=== PATIENT | male | born 1985 | race African-American/Black ===

== ENCOUNTER 2024-10-01 20:55 | Inpatient (IN) | payer SELFPAY ==
[2024-10-01 21:02] VITALS: BMI 26.6
[2024-10-01 22:42] LABS: VENOUS BASE EXCESS 5.7 mmol/L (-2-2); VENOUS O2 SATURATION 80.7 % (70-80); VENOUS PCO2 47.3 mmHg (38-52); VENOUS PH 7.43 (7.310-7.410)
[2024-10-01] MEDS ORDERED: HYDROmorphone HCL CARPU-JECT 2 MG/1 ML DISP.SYRIN ONE ×2 (22:42→23:46)
[2024-10-01 22:44] LABS: EOS % 2.2 % (0-4.5); HEMATOCRIT 25.2 % (35.4-49); HEMOGLOBIN 8.3 GM/dL (11.7-16.9); LYMPH % 7.6 % (8-40); MCH 29.1 pg (25.7-33.7); MEAN CELL VOLUME 88.2 fl (80-96); MEAN PLT VOLUME 7.3 fl (7.5-11.1); MONO % 10.8 % (3.8-10.2); NEUT % 78.4 % (42.8-82.8); PLATELET COUNT 102 10^3/uL (134-434); RBC 2.86 M/mm3 (4.00-5.60); RDW 18.5 % (11.9-15.9); WHITE BLOOD COUNT 3.6 K/mm3 (4.0-10.0)
[2024-10-01 22:57] LABS: INR 1.05 (0.83-1.09); PROTHROMBIN TIME (PATIENT) 11.8 SEC (9.7-13.0)
[2024-10-01 22:59] LABS: ACTIVATED PTT 37.2 SECONDS (25.2-36.5)
[2024-10-01 23:11] LABS: POTASSIUM 3.9 mmol/L (3.5-5.1)
[2024-10-01 23:12] LABS: BLOOD UREA NITROGEN 27.4 mg/dL (7-18); CALCIUM 9.7 mg/dL (8.5-10.1); MAGNESIUM 2.2 mg/dL (1.8-2.4)
[2024-10-01 23:16] LABS: CREATININE 6.3 mg/dL (0.55-1.3); PHOSPHOROUS 3.6 mg/dL (2.5-4.9)
[2024-10-01] MEDS: HYDROmorphone HCl 2 MG/ML VIAL IVPUSH ONE ×2 (23:17→23:53)
[2024-10-01 23:18] LABS: BILIRUBIN,TOTAL 0.7 mg/dL (0.2-1); TOT PROT 6.6 g/dl (6.4-8.2)
[2024-10-02] MEDS ORDERED: HYDROmorphone HCL CARPU-JECT 2 MG/1 ML DISP.SYRIN ONE ×2 (00:26→01:35)
[2024-10-02] MEDS: HYDROmorphone HCl 2 MG/ML VIAL IVPUSH ONE ×2 (00:51→01:53)
[2024-10-02] MEDS: HYDROmorphone HCL CARPU-JECT 2 MG/1 ML DISP.SYRIN IVPB PRN (05:38)
[2024-10-02] MEDS ORDERED: METOCLOPRAMIDE HCL 10 MG TABLET (FP) PO PRN (06:32)
[2024-10-02] MEDS: INSULIN ASPART SLIDING SCALE (NOVOLOG) 1 VIAL SQ SCH (08:11)
[2024-10-02] MEDS: LABETALOL HCL 100 MG TABLET (FP) PO SCH (08:16)
[2024-10-02] MEDS: ACETAMINOPHEN 1000 MG/100 ML BAG IVPB PRN (08:16)
[2024-10-02] MEDS: cloNIDine HCL 0.1 MG TABLET PO SCH (08:16)
[2024-10-02] MEDS: hydrALAZINE HCL 50 MG TABLET (FP) PO SCH (08:16)
[2024-10-02] MEDS ORDERED: HYDROmorphone HCL CARPU-JECT 2 MG/1 ML DISP.SYRIN IVPB PRN (09:28)
[2024-10-02] MEDS: NIFEdipine E.R 60 MG TABLET PO SCH (09:49)
[2024-10-02] MEDS: CEFTRIAXONE 1 GM/50 ML PREMIX IVPB SCH (09:49)
[2024-10-02] MEDS: HYDROXYUREA 500 MG CAPSULE PO SCH (09:49)
[2024-10-02] MEDS: FOLIC ACID 1 MG TABLET (FP) PO SCH (09:49)
[2024-10-02] MEDS ORDERED: FOLIC ACID 1 MG TABLET (FP) PO SCH (10:00)
[2024-10-02] MEDS ORDERED: HYDROXYUREA 500 MG CAPSULE PO SCH (10:00)
[2024-10-02] MEDS: AZITHROMYCIN IVPB 500 MG/250 ML BAG IVPB ONE (10:38)
[2024-10-02] MEDS: HYDROmorphone HCL CARPU-JECT 2 MG/1 ML DISP.SYRIN IVPUSH PRN (10:46)
[2024-10-02] MEDS ORDERED: SODIUM CHLORIDE 250 ML IV PRN (13:15)
[2024-10-02 16:17] LABS: POTASSIUM 4.3 mmol/L (3.5-5.1)
[2024-10-02 16:21] LABS: CALCIUM 9.8 mg/dL (8.5-10.1)
[2024-10-02 16:22] LABS: ALBUMIN 2.8 g/dl (3.4-5.0); MAGNESIUM 2.1 mg/dL (1.8-2.4)
[2024-10-02 16:24] LABS: CREATININE 7.3 mg/dL (0.55-1.3)
[2024-10-02 16:25] LABS: PHOSPHOROUS 4.8 mg/dL (2.5-4.9)
[2024-10-02 16:27] LABS: BILIRUBIN,TOTAL 0.6 mg/dL (0.2-1); TOT PROT 6.2 g/dl (6.4-8.2)
[2024-10-02] MEDS: EPOETIN ALFA-EPBX 10,000 UNIT/ML VIAL SQ ONE (18:47)
[2024-10-03] MEDS: AZITHROMYCIN IVPB 250 MG in DEXTROSE 5%-WATER - 250 ML IVPB SCH (12:35)
[2024-10-03] MEDS: HYDROmorphone HCL CARPU-JECT 2 MG/1 ML DISP.SYRIN IVPUSH PRN (15:26)
[2024-10-03] MEDS ORDERED: SODIUM CHLORIDE 250 ML IV PRN (19:12)
[2024-10-03] MEDS: hydrALAZINE HCL 50 MG TABLET (FP) PO SCH (21:24)
[2024-10-03] MEDS: LABETALOL HCL 100 MG TABLET (FP) PO SCH (21:24)
[2024-10-03] MEDS: cloNIDine HCL 0.1 MG TABLET PO SCH (21:24)
[2024-10-04 09:56] LABS: BASO % 0.7 % (0-2.0); HEMATOCRIT 22.7 % (35.4-49); HEMOGLOBIN 7.6 GM/dL (11.7-16.9); MCH 29.9 pg (25.7-33.7); MCHC 33.3 g/dl (32.0-35.9); MEAN CELL VOLUME 89.7 fl (80-96); MEAN PLT VOLUME 7.2 fl (7.5-11.1); NEUT % 71.3 % (42.8-82.8); PLATELET COUNT 115 10^3/uL (134-434); RBC 2.53 M/mm3 (4.00-5.60); RDW 18.8 % (11.9-15.9); WHITE BLOOD COUNT 3.3 K/mm3 (4.0-10.0)
[2024-10-04] MEDS: EPOETIN ALFA-EPBX 10,000 UNIT/ML VIAL IVPUSH ONE (10:15)
[2024-10-04 10:18] LABS: CHLORIDE 101 mmol/L (98-107); SODIUM 136 mmol/L (136-145)
[2024-10-04 10:23] LABS: ALBUMIN 2.6 g/dl (3.4-5.0); ANION GAP 7 mmol/L (4-13); BLOOD UREA NITROGEN 44.4 mg/dL (7-18); CALCIUM 9.6 mg/dL (8.5-10.1); CO2 28 mmol/L (21-32); GLUCOSE,RANDOM 188 mg/dL (74-106)
[2024-10-04 10:27] LABS: SGOT/AST 19 U/L (15-37); SGPT/ALT 21 U/L (13-61)
[2024-10-04 10:28] LABS: BILIRUBIN,TOTAL 0.5 mg/dL (0.2-1); TOT PROT 5.8 g/dl (6.4-8.2)
[2024-10-04 10:29] LABS: ALK PHOS 195 U/L (45-117)
[2024-10-04 10:38] LABS: CREATININE 7.7 mg/dL (0.55-1.3)
[2024-10-04] MEDS: NIFEdipine E.R 60 MG TABLET PO SCH (12:53)
[2024-10-04 13:41] VITALS: BP 172/61; PULSE 82; RESP 17; TEMP 98.6
[2024-10-04] MEDS ORDERED: AMOX TR/POT CLAV 500MG/125MG TABLETS (FP) PO SCH (17:30)
[2024-10-05] MEDS ORDERED: AMOX TR/POT CLAV 875MG/125MG TABLETS (FP) PO SCH (09:00)
== END 2024-10-04 16:54 | disposition home or self-care (01) | DRG 662 ==
LOC: JER 20:55 → JERBED 10-02 01:23 → OBSVTOIN 10-02 04:09 → J8W 10-02 04:34
PROVIDERS: ADMIT Internal Medicine; ATTEND Nurse Practitioner Acute Care
PROC: 5A1D70Z Performance of Urinary Filtration, Intermittent, Less than 6 Hours Per Day (ICD-10-PCS; principal; 2024-10-04)
DX: D57.00 Hb-SS disease with crisis, unspecified (principal); J18.9 Pneumonia, unspecified organism; N18.6 End stage renal disease; I69.354 Hemiplegia and hemiparesis following cerebral infarction affecting left non-dominant side; I12.0 Hypertensive chronic kidney disease with stage 5 chronic kidney disease or end stage renal disease; I51.7 Cardiomegaly; J98.9 Respiratory disorder, unspecified; Z99.2 Dependence on renal dialysis; D64.9 Anemia, unspecified
CPT/HCPCS: 36415; 71045-TC-FY; 71250-TC; 76937; 80053; 82803; 82962; 83615; 83735; 84100; 84484; 85025; 85045; 85610; 85730; 86704; 86705; 86803; 86850; 86900; 86901; 87340; 87517; 93005; 93010; 99285-25; G0378; J0131; J8999; Q5106